=== PATIENT | male | born 1945 | race Caucasian/White ===

== ENCOUNTER → 2020-01-24 | Outpatient (CLI) | payer OTHER ==
[~2020-01-24] MED LIST: (None)20 M1 PO; ALBU90OI INH; ALBU90OI61 INH; ASPI81CH PO; Aspirin EC81 MG PO; BENZ100A PO; Bacid1 EACH PO; CEFP200 PO; CYCL10 PO; Cubicin500 MG/VIA IV; ENAL10 PO; ENAL20 PO; ENAL5; ENAL5 PO; Flonase 0.05% N16 GM; GLIP10 PO; GLIP5 PO; GLIP5ER; HYDACE5 PO; HYDACE5325 PO; HYDHCL25 PO; Juven1 EACH PO; LEVFLO500 PO; LEVO750 PO; METF500; METF500 PO; METF500C PO; METFORMIN PO; METO10 PO; MINO100 PO; NITR.4SL SL; OMEP20ER PO; OMEPRAZOLE MAGN20 MG PO; OSEL75CA PO; PIOG30 PO; PIOG45 PO; PRED20 PO; Percocet 5-3251 EACH PO; Prednisone20 MG PO; RANITIDINE PO; RIFA300 PO; SIMV10 PO; SIMV20 PO; SIMV40 PO; SIMVASTATIN PO; TOUJEO SOL300 UNIT/1 SC; TRAZ50 PO; TRIA80TC TOP; ZOLP5 PO; [UNRECOGNIZED DRUG - OTHER]; [UNRECOGNIZED DRUG - REMARK]
== END | disposition home or self-care (01) ==
LOC: LAB 11:56 → LAB SHORT 11:56
DX: R35.0 Frequency of micturition (principal)
CPT/HCPCS: 87086

== ENCOUNTER → 2021-05-01 | Outpatient (CLI) | payer OTHER | END | disposition home or self-care (01) | LOC: LAB SHORT 11:12 | DX: L30.2 Cutaneous autosensitization (principal) | CPT/HCPCS: 87220 ==

== ENCOUNTER → 2021-05-19 | Outpatient (CLI) | payer OTHER | LOC: LAB SHORT 12:12 | DX: L30.9 Dermatitis, unspecified (principal); D23.71 Other benign neoplasm of skin of right lower limb, including hip | CPT/HCPCS: 88305; 88312 ==

== ENCOUNTER 2021-07-27 23:07 | Emergency (ER) | payer OTHER ==
[~2021-07-27] VITALS: Ht 175.3 cm; Wt 120.2 kg
[2021-07-28] MEDS ORDERED: GLIP5 PO (00:16)
[2021-07-28] MEDS ORDERED: METF500 PO (00:19)
[2021-07-28] MEDS ORDERED: JARDIANCE25 MG PO (00:20)
[2021-07-28] MEDS ORDERED: OZEMPIC0.25 MG/0. SC (00:20)
[2021-07-28] MEDS ORDERED: OXYB5ER PO (00:21)
[2021-07-28] MEDS ORDERED: TRAZ100 PO (00:21)
[2021-07-28] MEDS ORDERED: CLOP75 PO (00:22)
[2021-07-28] MEDS ORDERED: GABA300 PO (00:22)
[2021-07-28] MEDS ORDERED: METO25 PO (00:23)
[2021-07-28] MEDS ORDERED: [UNRECOGNIZED DRUG - OTHER] PO (00:24)
[2021-07-28] MEDS ORDERED: ALBU90OI INH (00:25)
[2021-07-28] MEDS ORDERED: Norco 5-325 Ta1 EACH PO (00:25)
[2021-07-28 00:53] LABS: Influenza A, PCR NEGATIVE (NEGATIVE); Influenza B, PCR NEGATIVE (NEGATIVE); Resp Syncytial Virus, PCR NEGATIVE (NEGATIVE)
[2021-07-28 00:54] LABS: SARS-Cov-2 (COVID-19) PCR, MMC POSITIVE (NEGATIVE)
[2021-07-28 00:55] LABS: Calcium, Ionized (POC) 1.08 mmol/L (1.10-1.46); Chloride (POC) 100 mmol/L (98-108); Creatinine (POC) 1.1 mg/dL (0.8-1.3); Glucose (ISTAT POC) 133 mg/dL (70-99); Hemoglobin (POC) 8.5 g/dL (13.5-17.5); Sodium (POC) 138 mmol/L (135-148); Total CO2 (POC) 26 mmol/L (21-32)
== END 2021-07-28 02:51 | disposition home or self-care (01) ==
LOC: ER 23:07
PROVIDERS: Emergency Medicine
DX: U07.1 COVID-19 (principal); E11.9 Type 2 diabetes mellitus without complications; E78.00 Pure hypercholesterolemia, unspecified; K21.9 Gastro-esophageal reflux disease without esophagitis; G47.33 Obstructive sleep apnea (adult) (pediatric); F17.200 Nicotine dependence, unspecified, uncomplicated; Z79.84 Long term (current) use of oral hypoglycemic drugs; Z79.899 Other long term (current) drug therapy; Z79.4 Long term (current) use of insulin; D64.9 Anemia, unspecified
CPT/HCPCS: 0241U; 80047; 85014; 99284

== ENCOUNTER 2021-08-14 01:39 | Day surgery (SDC) | payer OTHER ==
[~2021-08-14 01:39] MED LIST changes: +CLOP75 PO; +GABA300 PO; +JARDIANCE25 MG PO; +METO25 PO; +Norco 5-325 Ta1 EACH PO; +OXYB5ER PO; +OZEMPIC0.25 MG/0. SC; +TRAZ100 PO; +[UNRECOGNIZED DRUG - OTHER] PO
[2021-08-14] MEDS ORDERED: METO25ER PO (08:54)
[2021-08-14] MEDS ORDERED: ROPI1 PO (08:56)
[2021-08-14] MEDS ORDERED: ERGO50000 PO (08:56)
== END 2021-08-14 09:42 | disposition home or self-care (01) ==
LOC: ATC 01:39
DX: D50.9 Iron deficiency anemia, unspecified (principal); I10 Essential (primary) hypertension; K21.9 Gastro-esophageal reflux disease without esophagitis
CPT/HCPCS: 36430; 86850; 86900; 86901; 86920; J7050; P9016

== ENCOUNTER 2021-10-16 08:31 | Day surgery (SDC) | payer OTHER ==
[~2021-10-16] VITALS: Ht 175.3 cm; Wt 111.1 kg
[~2021-10-16 08:31] MED LIST changes: +ERGO50000 PO; +METO25ER PO; +ROPI1 PO
--- NOTE | 2021-10-16 09:47 | NUR ---
10/16/21 0947 Cindy Rich History, Chart, Medications and Allergies reviewed before start of procedure.MONITOR INTACT WITH CONTINUOUS PULSE OXIMETRY,3 LEAD AND INTERMITTENT BP.O2 VIA N/C INTACT THROUGHOUT SEDATION/PROCEDURE. See Anesthesia record
--- NOTE | 2021-10-16 12:03 | NUR ---
Discharge instructions reviewed with patient. Patient verbalizes understanding. Copy given to patient to take home. Patient up to Ambulate independently. Gait steady. Patient States Post-Procedure ride home has been arranged. Discharged via wheelchair to private car for ride home.
== END 2021-10-16 23:41 | disposition home or self-care (01) ==
LOC: ORSCMMR 08:31
PROVIDERS: Internal Medicine Gastroenterology
PROC: 0DB98ZX Excision of Duodenum, Via Natural or Artificial Opening Endoscopic, Diagnostic (ICD-10-PCS; principal; 2021-10-16 09:45)
PROC: 3E0H8KZ Introduction of Other Diagnostic Substance into Lower GI, Via Natural or Artificial Opening Endoscopic (ICD-10-PCS; principal; 2021-10-16 09:45)
PROC: 0DBL8ZX Excision of Transverse Colon, Via Natural or Artificial Opening Endoscopic, Diagnostic (ICD-10-PCS; principal; 2021-10-16 09:45)
PROC: 0DB78ZX Excision of Stomach, Pylorus, Via Natural or Artificial Opening Endoscopic, Diagnostic (ICD-10-PCS; principal; 2021-10-16 09:45)
DX: D50.9 Iron deficiency anemia, unspecified (principal); Z86.010 Personal history of colon polyps; K31.7 Polyp of stomach and duodenum; D12.3 Benign neoplasm of transverse colon; K57.30 Diverticulosis of large intestine without perforation or abscess without bleeding; K64.4 Residual hemorrhoidal skin tags; D37.2 Neoplasm of uncertain behavior of small intestine; K29.70 Gastritis, unspecified, without bleeding; K64.8 Other hemorrhoids; Z79.02 Long term (current) use of antithrombotics/antiplatelets; I10 Essential (primary) hypertension; J44.9 Chronic obstructive pulmonary disease, unspecified; G47.33 Obstructive sleep apnea (adult) (pediatric); F17.210 Nicotine dependence, cigarettes, uncomplicated; E11.9 Type 2 diabetes mellitus without complications; Z79.84 Long term (current) use of oral hypoglycemic drugs; Z79.899 Other long term (current) drug therapy; E66.9 Obesity, unspecified; Z68.36 Body mass index [BMI] 36.0-36.9, adult
CPT/HCPCS: 82947; 88305; 88342; J2370; J2405; J2704; J7120

== ENCOUNTER 2022-02-24 08:19 | Day surgery (SDC) | payer OTHER ==
[~2022-02-24] VITALS: Ht 175.3 cm; Wt 109.9 kg
--- NOTE | 2022-02-24 10:20 | NUR ---
02/24/22 1020 Rosio Becker PROCEDURE CHANGED TO PUSH ENTEROSCOPY
== END 2022-02-24 11:09 | disposition home or self-care (01) ==
LOC: ORSCSDS 08:19
PROVIDERS: Internal Medicine Gastroenterology
PROC: 0DJ08ZZ Inspection of Upper Intestinal Tract, Via Natural or Artificial Opening Endoscopic (ICD-10-PCS; principal; 2022-02-24 09:30)
DX: D50.9 Iron deficiency anemia, unspecified (principal); K31.819 Angiodysplasia of stomach and duodenum without bleeding; G47.33 Obstructive sleep apnea (adult) (pediatric); F17.210 Nicotine dependence, cigarettes, uncomplicated; J43.1 Panlobular emphysema; E78.5 Hyperlipidemia, unspecified; E11.9 Type 2 diabetes mellitus without complications; G25.81 Restless legs syndrome; I10 Essential (primary) hypertension; Z85.528 Personal history of other malignant neoplasm of kidney; F32.A Depression, unspecified; Z79.84 Long term (current) use of oral hypoglycemic drugs; Z79.51 Long term (current) use of inhaled steroids; Z79.02 Long term (current) use of antithrombotics/antiplatelets; Z79.899 Other long term (current) drug therapy
CPT/HCPCS: 82947; A9270; J2704; J7120

== ENCOUNTER → 2022-08-17 | Outpatient (CLI) | payer OTHER ==
[2022-08-17 18:27] LABS: BASOPHILS ABSOLUTE AUTO 0.06 K/mm3 (0.00-0.23); BASOPHILS PERCENT AUTO 1 % (0-2); EOSINOPHILS PERCENT AUTO 4 % (0-6); Hematocrit 49.4 % (37.0-53.0); Hemoglobin 16.1 g/dL (13.5-17.5); IMMATURE GRAN ABSOLUTE AUTO 0.07 K/mm3 (0.00-0.10); IMMATURE GRAN PERCENT AUTO 1 % (0-1); LYMPHOCYTES ABSOLUTE AUTO 1.59 K/mm3 (0.84-5.20); LYMPHOCYTES PERCENT AUTO 19 % (21-46); MONOCYTES ABSOLUTE AUTO 0.51 K/mm3 (0.16-1.47); MONOCYTES PERCENT AUTO 6 % (4-13); Mean Corpuscular HGB 30.3 pg (26.0-34.0); Mean Corpuscular HGB Conc 32.6 g/dL (31.5-36.5); Mean Corpuscular Volume 93 fL (80-100); Mean Platelet Volume 9.8 fL (9.1-12.4); NEUTROPHILS ABSOLUTE AUTO 5.86 K/mm3 (1.96-9.15); NEUTROPHILS PERCENT AUTO 70 % (41-73); Platelet Count 180 K/mm3 (150-400); RDW Coefficient Variation 13.5 % (11.7-14.2); RDW Standard Deviation 46.2 fL (35.1-46.3); Red Blood Cell Count 5.31 M/mm3 (4.30-5.90); White Blood Cell Count 8.39 K/mm3 (4.00-11.30)
[2022-08-17 19:28] LABS: Percent Saturation 30.4 % (20.0-50.0)
== END | disposition home or self-care (01) ==
LOC: LAB SHORT 13:54 → LAB 13:54
PROVIDERS: Registered Nurse Oncology
DX: D50.9 Iron deficiency anemia, unspecified (principal)
CPT/HCPCS: 36415; 82728; 83540; 83550; 85025

== ENCOUNTER 2024-06-01 10:05 | Day surgery (SDC) | payer OTHER ==
[~2024-06-01] VITALS: Ht 175.3 cm; Wt 97.2 kg
[~2024-06-01 10:05] MED LIST changes: +BREZTRI AEROS10.7 GM IH; +BREZTRI AEROS10.7 GM PO; +Balanced Salt Epinephrine Irrigation Solution 500 mL IR SCH; +Crestor40 MG PO; +LIDOCAINE30 G1 TOP; +Lidocaine HCl/Pf 1% 5 ML VIAL XX SCH; +Moxifloxacin HCL 0.5 MG/0.1 ML 0.4MLSYR RIGHTEYE SCH; +Omeprazole20 M1 PO; +Oxybutynin Chlo15 MG PO; +PHENYLEPHRINE\\TROPICAMIDE\\TETRACAINE OPHTHALMIC DILATING SOLN RIGHTEYE PRN; +PRAM.125 PO; +PRAMIPEXOLE DIHY1 MG PO; +Povidone-Iodine 450 DROP/30 ML Solution RIGHTEYE SCH; +SEMAGLUTIDE; +Triamcinolone Inj Susp 40 MG / ML 1ML Vial INJ SCH; +Triamcinolone Inj Susp 40 MG / ML 1ML Vial ONE
--- NOTE | 2024-06-01 10:54 | NUR ---
06/01/24 1054 Shawanda Joseph AT [address] AT 1045
[2024-06-01] MEDS ORDERED: Tetracaine HCl 0.5% Opth Soln 15 ml XX ONE (11:33)
[2024-06-01 12:04] VITALS: BP 119/61
== END 2024-06-01 12:17 | disposition home or self-care (01) ==
LOC: ORSCSDS 10:05
PROVIDERS: Ophthalmology
PROC: 08RJ3JZ Replacement of Right Lens with Synthetic Substitute, Percutaneous Approach (ICD-10-PCS; principal; 2024-06-01 11:30)
DX: E11.36 Type 2 diabetes mellitus with diabetic cataract (principal); H25.811 Combined forms of age-related cataract, right eye; I10 Essential (primary) hypertension; G47.33 Obstructive sleep apnea (adult) (pediatric); K21.9 Gastro-esophageal reflux disease without esophagitis; F32.A Depression, unspecified; E66.9 Obesity, unspecified; F17.210 Nicotine dependence, cigarettes, uncomplicated; Z79.84 Long term (current) use of oral hypoglycemic drugs; Z79.899 Other long term (current) drug therapy
CPT/HCPCS: 82947; J3301; V2632

== ENCOUNTER → 2024-07-14 | Outpatient (CLI) | payer OTHER ==
[~2024-07-14] MED LIST changes: -Balanced Salt Epinephrine Irrigation Solution 500 mL IR SCH; -Lidocaine HCl/Pf 1% 5 ML VIAL XX SCH; -Moxifloxacin HCL 0.5 MG/0.1 ML 0.4MLSYR RIGHTEYE SCH; -PHENYLEPHRINE\\TROPICAMIDE\\TETRACAINE OPHTHALMIC DILATING SOLN RIGHTEYE PRN; -Povidone-Iodine 450 DROP/30 ML Solution RIGHTEYE SCH; -Triamcinolone Inj Susp 40 MG / ML 1ML Vial INJ SCH; -Triamcinolone Inj Susp 40 MG / ML 1ML Vial ONE
[2024-07-14 11:04] LABS: BASOPHILS ABSOLUTE AUTO 0.06 K/mm3 (0.00-0.23); BASOPHILS PERCENT AUTO 1 % (0-2); EOSINOPHILS PERCENT AUTO 3 % (0-6); Hemoglobin 12.6 g/dL (13.5-17.5); IMMATURE GRAN ABSOLUTE AUTO 0.03 K/mm3 (0.00-0.10); IMMATURE GRAN PERCENT AUTO 1 % (0-1); LYMPHOCYTES ABSOLUTE AUTO 1.37 K/mm3 (0.84-5.20); LYMPHOCYTES PERCENT AUTO 22 % (21-46); MONOCYTES ABSOLUTE AUTO 0.49 K/mm3 (0.16-1.47); MONOCYTES PERCENT AUTO 8 % (4-13); Mean Corpuscular HGB Conc 31.5 g/dL (31.5-36.5); Mean Corpuscular Volume 92 fL (80-100); Mean Platelet Volume 9.3 fL (9.1-12.4); NEUTROPHILS PERCENT AUTO 66 % (41-73); Platelet Count 143 K/mm3 (150-400); RDW Coefficient Variation 13.9 % (11.7-14.2); RDW Standard Deviation 47.6 fL (35.1-46.3); Red Blood Cell Count 4.35 M/mm3 (4.30-5.90); White Blood Cell Count 6.35 K/mm3 (4.00-11.30)
[2024-07-14 11:23] LABS: Albumin, Blood 3.1 g/dL (3.4-5.0); Bilirubin, Total 0.4 mg/dL (0.1-1.0); Bun/Creatinine Ratio 16.3 (12.0-20.0); Calcium, Blood 8.9 mg/dL (8.5-10.1); Creatinine, Blood 1.6 mg/dL (0.60-1.20); Globulin, Blood 3.2 g/dL (2.2-4.0); Potassium, Blood 4.3 mmol/L (3.5-5.5); Thyroid Stimulating Hormone 1.624 uIU/mL (0.360-4.800); Total Protein, Blood 6.3 g/dL (6.4-8.2)
== END | disposition home or self-care (01) ==
LOC: LAB 11:00 → LAB SHORT 11:00
PROVIDERS: Physician Assistant
DX: R53.83 Other fatigue (principal); R55 Syncope and collapse
CPT/HCPCS: 80053; 84443; 85025

== ENCOUNTER → 2024-07-24 | Outpatient (CLI) | payer OTHER | LOC: LAB SHORT 17:19 → LAB 17:19 | DX: N39.0 Urinary tract infection, site not specified (principal) | CPT/HCPCS: 87086 ==

== ENCOUNTER → 2024-07-26 | Outpatient (CLI) | payer OTHER ==
[2024-07-26 15:36] LABS: Bun/Creatinine Ratio 14.8 (12.0-20.0); Calcium, Blood 8.9 mg/dL (8.5-10.1); Creatinine, Blood 1.49 mg/dL (0.60-1.20); Potassium, Blood 4.2 mmol/L (3.5-5.5)
== END | disposition home or self-care (01) ==
LOC: LAB SHORT 15:29 → LAB 15:29
PROVIDERS: Physician Assistant
DX: N17.9 Acute kidney failure, unspecified (principal)
CPT/HCPCS: 80048

== ENCOUNTER → 2024-10-09 | Outpatient (CLI) | payer OTHER ==
[2024-10-09 18:32] LABS: Creatinine Urine 47.7 mg/dL (27.00-270.00); Protein, Urine Quantitative 23.8 mg/dL (0.0-11.9)
[2024-10-09 18:53] LABS: Creatinine, Urine Random 48.6 mg/dL (27.00-270.00); Microalb/Creat Ratio UR, Rand 90.124 mg/g (0.000-30.000); Microalbumin, Random Urine 43.8 mg/L (0.000-20.000)
[2024-10-11 16:21] LABS: ALBUMIN %,URINE 50.7 %; ALPHA-1 %,URINE 10.1 %; ALPHA-2 %,URINE 6.4 %; BETA GLOBULIN %,URINE 20.2 %; GAMMA GLOBULIN %,URINE 12.6 %; HOURS COLLECTED 24 hr; TOTAL VOLUME 2000 mL
== END ==
LOC: LAB SHORT 04:00 → LAB 04:00
PROVIDERS: Internal Medicine Nephrology
DX: N18.30 Chronic kidney disease, stage 3 unspecified (principal); D63.1 Anemia in chronic kidney disease; N25.81 Secondary hyperparathyroidism of renal origin; E55.9 Vitamin D deficiency, unspecified; E78.00 Pure hypercholesterolemia, unspecified; R76.9 Abnormal immunological finding in serum, unspecified; R94.5 Abnormal results of liver function studies; R94.6 Abnormal results of thyroid function studies; G60.9 Hereditary and idiopathic neuropathy, unspecified; D51.8 Other vitamin B12 deficiency anemias; D52.8 Other folate deficiency anemias; D50.9 Iron deficiency anemia, unspecified
CPT/HCPCS: 81050; 82043; 82570; 84156; 84166; 86335